=== PATIENT | male | born 1980 | race Caucasian/White ===

== ENCOUNTER 2017-08-29 18:34 | Inpatient (IN) | payer OTHER ==
[~2017-08-29] VITALS: Ht 180.3 cm; Wt 117.5 kg
[~2017-08-29 18:34] MED LIST: BACTRIM,SEPT1 TABLET PO; CLINDAMYCIN HC300 MG PO; MUPIROCIN22 GM TP; PERCOCET 5/31 TABLET PO; SUBOXONE 8 MG-1 EAC2 SL
[2017-08-29 18:45] LABS: BASOPHIL (%) 0.5 % (0-1); BASOPHIL COUNT 0.1 K/uL (0-0.1); EOSINOPHIL (%) 1.9 % (0-5); EOSINOPHIL COUNT 0.3 K/uL (0-0.3); HEMATOCRIT 41.7 % (38.0-50.0); HEMOGLOBIN 14.9 G/DL (12.5-16.6); IMMATURE GRANULOCYTE (%) 0.6 % (0.0-0.7); LYMPHOCYTE (%) 31.4 % (15-42); LYMPHOCYTE COUNT 4.2 K/uL (1.0-2.8); MCHC 35.7 G/DL (30.0-36.0); MCV 89.7 FL (86-99); MONOCYTE (%) 7.7 % (3-12); NEUTROPHIL (%) 57.9 % (45-76); NEUTROPHIL COUNT 7.8 K/uL (1.8-6.4); PLATELET COUNT 302 K/uL (156-360); RBC DIS.WIDTH-CV 11.7 % (11.8-14.6); RBC DIS.WIDTH-SD 38.1 % (39-53); RED BLOOD COUNT 4.65 M/uL (4.00-5.50); WHITE BLOOD COUNT 13.5 K/uL (4.1-10.2)
[2017-08-29 18:55] LABS: AMYLASE 27 IU/L (1-118); CHLORIDE 103 mEq/L (99-109); POTASSIUM 3.7 mEq/L (3.7-5.4); SODIUM 138 mEq/L (136-147)
[2017-08-29 18:56] LABS: GLUCOSE 130 mg/dL (70-99)
[2017-08-29 18:59] LABS: SERUM ETHYL ALCOHOL < 10 mg/dL
[2017-08-29 19:00] LABS: CREATININE 1.3 mg/dL (0.6-1.3); GFR ESTIMATE (CALCULATED) > 59 mL/min/ (58.99-99999)
[2017-08-29 19:01] LABS: UREA NITROGEN (BUN) 18 mg/dL (9-23)
[2017-08-29 19:03] LABS: LIPASE 16 U/L (1.0-51.0)
[2017-08-29 22:40] VITALS: BP 125/63
[2017-08-30 04:18] VITALS: BP 132/61
[2017-08-30 07:09] LABS: HEMATOCRIT 37.8 % (38.0-50.0); MCH 30.8 PG (29.0-34.0); MCHC 33.3 G/DL (30.0-36.0); MCV 92.4 FL (86-99); PLATELET COUNT 213 K/uL (156-360); RBC DIS.WIDTH-CV 11.9 % (11.8-14.6); RBC DIS.WIDTH-SD 40.5 % (39-53); RED BLOOD COUNT 4.09 M/uL (4.00-5.50); WHITE BLOOD COUNT 10.2 K/uL (4.1-10.2)
[2017-08-30 07:10] LABS: HEMOGLOBIN 12.6 G/DL (12.5-16.6)
[2017-08-30 07:21] LABS: ALBUMIN 3.5 G/DL (3.2-4.8); ALKALINE PHOSPHATASE 54 IU/L (3-129); ALT (GPT) 33 IU/L (3-49); AST (GOT) 47 IU/L (2-34); CHLORIDE 105 MEQ/L (99-109); GFR ESTIMATE (CALCULATED) > 59 mL/min/ (58.99-99999); GLUCOSE 108 mg/dL (70-99); POTASSIUM 4.1 MEQ/L (3.7-5.4); SODIUM 139 MEQ/L (136-147); TOTAL BILIRUBIN 0.4 MG/DL (0.0-1.0); TOTAL PROTEIN 5.7 G/DL (6.4-8.3); UREA NITROGEN (BUN) 17 mg/dL (9-23)
[2017-08-30 08:07] VITALS: BP 144/69
[2017-08-30 11:27] VITALS: BP 141/76
[2017-08-30 16:10] VITALS: BP 123/62
[2017-08-30 19:06] LABS: APPEARANCE CLEAR ((CLEAR)); BILIRUBIN NEGATIVE; BLOOD NEGATIVE; COLOR YELLOW ((YELLOW)); GLUCOSE (STRIP) NEGATIVE; KETONES NEGATIVE; LEUKOCYTES NEGATIVE; NITRITE NEGATIVE; PROTEIN (STRIP) NEGATIVE; UCUL ADDED? NO; UROBILINOGEN 0.2 MG/DL (0.2-1.0)
[2017-08-30 19:26] LABS: BENZODIAZEPINES, URINE SCREEN Negative (200 ng/mL)
[2017-08-30 19:35] VITALS: BP 130/69
[2017-08-30 23:29] VITALS: BP 132/80
[2017-08-31 08:15] VITALS: BP 136/78
[2017-08-31] MEDS ORDERED: OXYCODONE HCL5 MG PO (15:27)
[2017-08-31 15:40] VITALS: BP 172/80
[2017-08-31 20:45] VITALS: BP 152/93
== END 2017-08-31 21:10 | disposition home or self-care (01) | DRG 206 ==
LOC: TRA 18:34 → 3EAST 21:04 → EDOF 21:04 → ENRESERV 21:05 → 3EAST 22:02
PROVIDERS: Emergency Medicine; Surgery
PROC: 0W9930Z Drainage of Right Pleural Cavity with Drainage Device, Percutaneous Approach (ICD-10-PCS; principal; 2017-08-29)
DX: S27.321A Contusion of lung, unilateral, initial encounter (principal); S27.331A Laceration of lung, unilateral, initial encounter; S27.2XXA Traumatic hemopneumothorax, initial encounter; S22.31XA Fracture of one rib, right side, initial encounter for closed fracture; V29.9XXA Motorcycle rider (driver) (passenger) injured in unspecified traffic accident, initial encounter; J98.11 Atelectasis; M25.511 Pain in right shoulder; E66.9 Obesity, unspecified; F17.290 Nicotine dependence, other tobacco product, uncomplicated; Z68.36 Body mass index [BMI] 36.0-36.9, adult; Z87.74 Personal history of (corrected) congenital malformations of heart and circulatory system
CPT/HCPCS: 70450; 71045; 71260; 72125; 72170; 74177; 80048; 80053; 80306 90; 81003; 82150; 83690; 85025; 85027; 86850; 86900; 86901; 93005; 99281; 99285; G0480; J1170; J3010; J7120

== ENCOUNTER 2017-09-04 15:27 | Inpatient (IN) | payer OTHER ==
[~2017-09-04] VITALS: Ht 180.3 cm; Wt 119.0 kg
[~2017-09-04 15:27] MED LIST changes: +OXYCODONE HCL5 MG PO
[2017-09-04 15:53] LABS: HEMATOCRIT 37.4 % (38.0-50.0); HEMOGLOBIN 13.3 G/DL (12.5-16.6); MCH 31.6 PG (29.0-34.0); MCHC 35.6 G/DL (30.0-36.0); MCV 88.8 FL (86-99); PLATELET COUNT 268 K/uL (156-360); RBC DIS.WIDTH-CV 11.9 % (11.8-14.6); RBC DIS.WIDTH-SD 37.9 % (39-53); RED BLOOD COUNT 4.21 M/uL (4.00-5.50); WHITE BLOOD COUNT 12.5 K/uL (4.1-10.2)
[2017-09-04 16:01] LABS: ALBUMIN 4.2 g/dL (3.2-4.8); CHLORIDE 101 mEq/L (99-109); INTER. NORMALIZED RATIO 1.2; POTASSIUM 4.3 mEq/L (3.7-5.4); SODIUM 136 mEq/L (136-147)
[2017-09-04 16:04] LABS: GLUCOSE 138 mg/dL (70-99); TOTAL PROTEIN 6.6 g/dL (6.4-8.3)
[2017-09-04 16:06] LABS: TOTAL BILIRUBIN 1.1 mg/dL (0.0-1.0)
[2017-09-04 16:07] LABS: ALKALINE PHOSPHATASE 80 IU/L (3-129); CREATININE 1.1 mg/dL (0.6-1.3); GFR ESTIMATE (CALCULATED) > 59 mL/min/ (58.99-99999)
[2017-09-04 16:08] LABS: UREA NITROGEN (BUN) 18 mg/dL (9-23)
[2017-09-04 16:09] LABS: AST (GOT) 30 IU/L (2-34)
[2017-09-04 16:10] LABS: ALT (GPT) 39 IU/L (3-49)
[2017-09-04 16:16] LABS: TROP-I INTERPRETATION NEGATIVE; TROPONIN-I 0.01 ng/mL (0.0-0.30)
[2017-09-04 20:13] VITALS: BP 137/64
[2017-09-05 00:02] VITALS: BP 136/64
[2017-09-05 03:42] VITALS: BP 140/87
[2017-09-05 05:32] LABS: BASOPHIL (%) 0.2 % (0-1); EOSINOPHIL (%) 1.5 % (0-5); EOSINOPHIL COUNT 0.2 K/uL (0-0.3); HEMATOCRIT 33.8 % (38.0-50.0); HEMOGLOBIN 11.6 G/DL (12.5-16.6); IMMATURE GRANULOCYTE (%) 0.8 % (0.0-0.7); LYMPHOCYTE (%) 12.3 % (15-42); LYMPHOCYTE COUNT 1.3 K/uL (1.0-2.8); MCH 30.9 PG (29.0-34.0); MCHC 34.3 G/DL (30.0-36.0); MCV 89.9 FL (86-99); MONOCYTE (%) 11.2 % (3-12); MONOCYTE COUNT 1.2 K/uL (0-0.8); NEUTROPHIL COUNT 7.7 K/uL (1.8-6.4); PLATELET COUNT 236 K/uL (156-360); RBC DIS.WIDTH-CV 11.9 % (11.8-14.6); RBC DIS.WIDTH-SD 38.7 % (39-53); RED BLOOD COUNT 3.76 M/uL (4.00-5.50); WHITE BLOOD COUNT 10.5 K/uL (4.1-10.2)
[2017-09-05 06:26] LABS: CHLORIDE 105 MEQ/L (99-109); GFR ESTIMATE (CALCULATED) > 59 mL/min/ (58.99-99999); GLUCOSE 130 mg/dL (70-99); SODIUM 137 MEQ/L (136-147); UREA NITROGEN (BUN) 19 mg/dL (9-23)
[2017-09-05 08:05] VITALS: BP 129/62
[2017-09-05 11:39] LABS: TYPE OF FLUID PLEURAL
[2017-09-05 12:33] LABS: BODY FLUID GLUCOSE 118 MG/DL; BODY FLUID LDH 3136 IU/L; BODY FLUID PROTEIN 4.9 G/DL
[2017-09-05 14:37] LABS: APPEARANCE CLOUDY-BLOODY; BODY FLUID RBC'S 2086000 /MM^3 (0-100); BODY FLUID WBC'S 4740 /MM^3 (0-500)
[2017-09-05 14:59] LABS: BODY FLUID EOSINOPHILS 3 % (0-25); MONONUCLEAR WBC'S 9 %; POLYNUCLEAR WBC'S 88 % (0-25)
[2017-09-05 18:25] VITALS: BP 124/57
[2017-09-05 23:43] VITALS: BP 125/57
[2017-09-06 04:17] VITALS: BP 140/65
[2017-09-06 08:00] VITALS: BP 122/68
[2017-09-06 12:01] VITALS: BP 167/71
[2017-09-06 16:00] VITALS: BP 157/71
[2017-09-06 19:00] VITALS: BP 153/65
[2017-09-06 20:56] LABS: BENZODIAZEPINES, URINE SCREEN Negative (200 ng/mL)
[2017-09-07 00:20] VITALS: BP 126/58
[2017-09-07 07:40] VITALS: BP 118/76
[2017-09-07 11:53] VITALS: BP 142/74
[2017-09-07 16:13] VITALS: BP 144/76
== END 2017-09-07 19:34 | disposition home or self-care (01) | DRG 193 ==
LOC: EME 15:27 → EDOF 18:38 → 4SOUTH 18:38 → EDOF 18:38 → ENRESERV 18:41 → 4SOUTH 20:09 → ENPENDDIS 09-07 13:24 → 4SOUTH 09-07 19:34
PROVIDERS: Hospitalist; Physician Assistant; Thoracic Surgery (Cardiothoracic Vascular Surgery)
PROC: 0W993ZZ Drainage of Right Pleural Cavity, Percutaneous Approach (ICD-10-PCS; principal; 2017-09-05)
DX: J18.9 Pneumonia, unspecified organism (principal); S27.1XXA Traumatic hemothorax, initial encounter; V29.9XXA Motorcycle rider (driver) (passenger) injured in unspecified traffic accident, initial encounter; F11.20 Opioid dependence, uncomplicated; Y95 Nosocomial condition; E66.8 Other obesity; Z68.36 Body mass index [BMI] 36.0-36.9, adult; Z79.899 Other long term (current) drug therapy; Z87.74 Personal history of (corrected) congenital malformations of heart and circulatory system; Z87.891 Personal history of nicotine dependence; Z22.322 Carrier or suspected carrier of Methicillin resistant Staphylococcus aureus
CPT/HCPCS: 71045; 71046; 71275; 76942; 80048; 80053; 80202; 80306 90; 82945; 83605; 83615 91; 84157; 84484; 85025; 85027; 85610; 86850; 86900; 86901; 87040; 87070; 87075; 87205; 87449; 87641; 89051; 93005; 93306; 94640; 94640 76; 94760; 94799; 99202; 99281; 99285; G0378; J0456; J1650; J1885; J1956; J2405; J2543; J3010; J3370; J7030; J7050